=== PATIENT | female | born 1990 | race Caucasian/White ===

== ENCOUNTER 2023-02-03 18:46 | Emergency (ER) | payer OTHER ==
[2023-02-03] MEDS ORDERED: CETIRIZINE 10 MG TABLET PO STA (19:01)
[2023-02-03] MEDS ORDERED: CHERRY SYRUP 10 ML UDC PO ONE (19:01)
[2023-02-03] MEDS ORDERED: DEXAMETHASONE 10 MG/ML VIAL PO STA (19:01)
--- NOTE | 2023-02-03 19:27 | ED Physician Documentation ---
History of Present Illness - Stated complaint Stated Complaint: SOA - Chief complaint Chief Complaint: General - History obtained from History obtained from: Patient - History of Present Illness Timing: How many weeks ago (1) Pain level max: 0 Pain level now: 0 - Additonal information Additional information: Patient is a 32-year-old female who presents to the emergency department with dyspnea over the past 1 week. She feels like she has nasal congestion and unable to fully take a deep breath. She feels like she has allergies. She was given a nebulizer treatment with EMS and feels like she is breathing much easier. Has never used nebulizers before. No fevers. No chills. No cough. She states that when she feels like she cannot take a full breath that she gets very anxious as well. No recent travel. No recent surgeries. Has not taken anything for this at home. Patient denies any possibility of . Review of Systems Constitutional: denies: Fever, Chills GI: denies: Vomiting, Diarrhea Skin: denies: Rash Musculoskeletal: denies: Neck pain, Back pain Neurologic: denies: Headache PD PAST MEDICAL HISTORY - Past Medical History Past Medical History: Yes Psych: Anxiety - Past Surgical History Past Surgical History: No - Present Medications Home Medications: Ambulatory Orders Medication Instructions Recorded Confirmed Albuterol Sulf [Ventolin Hfa 1 - 2 puffs INH Q4HR PRN #1 each 02/03/23 Inhaler] - Allergies Allergies/Adverse Reactions: Allergies Allergy/AdvReac Type Severity Reaction Status Date / Time No Known Drug Allergies Allergy Verified 02/03/23 18:57 - Living Situation Living Arrangement: reports: At home - Social History Does the pt smoke?: No Does the pt have substance abuse?: No - Family History Family history: reports: Non contributory PD ED PE NORMAL - Vitals Vital signs reviewed: Yes - General General: Alert and oriented X 3, No acute distress, Well developed/nourished - HEENT HEENT: Moist mucous membranes, Pharynx benign - Neck Neck: Supple, no meningeal sign - Cardiac Cardiac: RRR, Strong equal pulses - Respiratory Respiratory: No respiratory distress, Clear bilaterally - Abdomen Abdomen: Soft, Non tender, Non distended - Derm Derm: Warm and dry - Extremities Extremities: No edema, No calf tenderness / cord - Neuro Neuro: Alert and oriented X 3 - Psych Psych: Normal mood, Normal affect Results - Vitals Vitals: Vital Signs - 24 hr 02/03/23 02/03/23 02/03/23 18:50 19:00 19:59 Temperature 36.4 C L Heart Rate 83 64 52 L Respiratory 17 Rate Blood Pressure 106/87 H 107/76 119/67 O2 Saturation 100 100 100 Oxygen O2 Source Room air PD Medical Decision Making - ED course Complexity details: re-evaluated patient, considered differential, d/w patient ED course: Patient was given Zyrtec here. She declines dexamethasone. Lungs are clear to auscultation bilaterally here. We will place on albuterol inhaler for home. No fevers. No chills. No coughing. Patient is very well-appearing, nontoxic. No indication for emergent imaging. No evidence of pneumonia, pneumothorax. Patient counseled regarding signs and symptoms for which I believe and urgent re-evaluation would be necessary. Patient with good understanding of and agreement to plan and is comfortable going home at this time This document was made in part using voice recognition software. While efforts are made to proofread this document, sound alike and grammatical errors may occur. Departure - Departure Disposition: 01 Home, Self Care Clinical Impression: Seasonal allergic reaction Condition: Good Instructions: ED Allergy Seasonal Follow-Up: Paula Han, [employer]OY[employer] [Primary Care Provider] - Within 1 week Prescriptions: Albuterol Sulf [Ventolin Hfa Inhaler] 1 - 2 puffs INH Q4HR PRN #1 each PRN Reason: Shortness Of Air/Wheezing Comments: I would recommend starting on Zyrtec or Claritin as well. Please follow-up with your doctor for further care. Please return if you worsen. Discharge Date/Time: 02/03/23 20:14
[2023-02-03 20:04] VITALS: BP 119/67
== END 2023-02-03 20:14 | disposition home or self-care (01) ==
LOC: ED 18:46
DX: J30.2 Other seasonal allergic rhinitis (principal)
CPT/HCPCS: 94664; 99283; A9270